=== PATIENT | male | born 1980 ===

== ENCOUNTER 2021-02-08 19:12 | Emergency (ER) | payer MEDICAID ==
[~2021-02-08] VITALS: Ht 188 cm; Wt 108.5 kg
[2021-02-08 20:12] VITALS: BP 140/86
== END 2021-02-08 21:53 | disposition home or self-care (01) ==
LOC: ER 19:13
DX: R07.81 Pleurodynia (principal); Z20.822 Contact with and (suspected) exposure to COVID-19; R05 Cough; R50.9 Fever, unspecified; I10 Essential (primary) hypertension; E11.9 Type 2 diabetes mellitus without complications; F17.200 Nicotine dependence, unspecified, uncomplicated; Z88.0 Allergy status to penicillin
CPT/HCPCS: 36415; 71045; 99284; U0003; U0005